=== PATIENT | male | born 1990 | race Caucasian/White ===

== ENCOUNTER 2025-03-27 06:52 | Day surgery (SDC) | payer OTHER ==
[2025-03-27] MEDS ORDERED: Lactated Ringers 1,000 ML IV ONE (06:57)
[2025-03-27] MEDS: Lactated Ringers 1,000 ML IV SCH (07:20)
[2025-03-27] MEDS ORDERED: Versed 2 MG/2 ML Injection ONE (08:26)
[2025-03-27] MEDS ORDERED: propofoL IV ONE ×2 (08:26→08:33)
[2025-03-27 09:33] VITALS: RESP 18
[2025-03-27 09:40] VITALS: BP 131/93; PULSE 80; TEMP 97.4; O2SAT 100
--- NOTE | 2025-03-28 10:08 | OP ---
SURGERY DATE/TIME: 03/27/2025 [id number] PREOPERATIVE DIAGNOSIS: Abdominal pain and diarrhea, diagnosis of diverticulitis. POSTOPERATIVE DIAGNOSIS: Mild to moderate proctitis; otherwise, normal colon. PROCEDURE: Colonoscopy. SURGEON: Jason Jackson MD ANESTHESIA: Medication given by the anesthesia department. INDICATIONS: The patient is a 34-year-old white male patient presenting with complaints of abdominal pain and was diagnosed with diverticulitis several weeks ago. The patient has been on 2 different antibiotics and continues to have diarrhea at this point but no bleeding. The patient reports a negative history, family history for colon cancer, colon polyps, ulcerative colitis, or Crohn disease. The patient was felt to need to have endoscopic evaluation. He was apprised of the risks of the procedure including risks of perforation, phlebitis, untoward reaction to medication, bleeding, and missed lesions. The patient verbalized his understanding and desired to have procedure performed. DESCRIPTION OF PROCEDURE AND FINDINGS: The patient was given medication by the anesthesia department. He had continuous pulse oximetry, ECG monitoring, and intermittent blood pressure monitoring during the examination. He was placed in the left lateral decubitus position. Digital rectal examination was performed and revealed normal anal sphincter tone and no masses. Flexible Olympus videocolonoscope was used to intubate the rectum. A view of the colon was developed sequentially to the cecum including short distance to the terminal ileum. Upon insertion and withdrawal, there was noted to be some inflammation and mild mucus in the rectal area. This was biopsied using 3 passes of cold forceps biopsy instruments to determine the nature of the inflammation. No other mucosal lesions being encountered, the scope was removed from the patient who tolerated the procedure well and sent back to outpatient recovery unit in good condition. The prep was noted to be good.
== END 2025-03-27 09:45 | disposition home or self-care (01) ==
LOC: SDC 06:52
PROVIDERS: ATTEND Family Medicine
DX: K62.89 Other specified diseases of anus and rectum (principal); R19.7 Diarrhea, unspecified; R10.9 Unspecified abdominal pain; K57.92 Diverticulitis of intestine, part unspecified, without perforation or abscess without bleeding